=== PATIENT | male | born 1985 | race Caucasian/White ===

== ENCOUNTER 2017-05-20 21:24 | Emergency (ER) | payer SELFPAY ==
[~2017-05-20] VITALS: Ht 185.4 cm; Wt 94.5 kg
[~2017-05-20 21:24] MED LIST: DICL75 PO; DOXY100T PO; LORTA5 PO; TRAM50 PO; Z.0.NO CURRENT MEDS
[2017-05-20 21:39] VITALS: BP 149/73; PULSE 90; RESP 20; TEMP 100.8; O2SAT 97
[2017-05-20] MEDS ORDERED: AZIT250T3 PO (22:45)
[2017-05-20] MEDS ORDERED: NAPR500T2 PO (22:45)
--- NOTE | 2017-05-20 22:45 | PD ---
HPI Chief Complaint: Cold / Flu Symptoms Time Seen by Provider: 22:34 Travel History International Travel<30 days: No Contact w/Intl Traveler<30days: No Traveled to known affect area: No History of Present Illness HPI This is a 31-year-old male who presents to the emergency department with 1 week of persistent cough, fever, chills, body aches and sore throat, constant, moderate severity. He denies any vomiting or diarrhea. He's been taking everything [id number] that he can think of but is not getting better. He' s been having difficulty eating and drinking. PFSH Past Medical History Medical History: Denies Significant Hx Diminished Hearing: No Immunizations Current: No Tetanus Vaccination: < 5 Years Influenza Vaccination: No Past Surgical History Surgical History: No Previous Surgery Social History Alcohol Use: No Tobacco Use: No Substance Use: No Allergies-Medications (Allergen,Severity, Reaction): Coded Allergies: penicillin G (Unverified Allergy, Mild, 05/20/17) Reported Meds & Prescriptions Reported Meds & Active Scripts Active No Active Prescriptions or Reported Medications Review of Systems Except as stated in HPI: all other systems reviewed are Neg Physical Exam Narrative GENERAL:Well appearing, no acute distress SKIN: Focused skin assessment warm and dry. HEAD: Atraumatic. Normocephalic. EYES: Pupils equal and round. No injection or drainage. ENT: Moist mucous membranes. Posterior pharyngeal erythema. NECK: Tender left anterior cervical lymphadenopathy. CARDIOVASCULAR: Regular rate and rhythm. No murmur appreciated. RESPIRATORY: Clear to auscultation. Breath sounds equal bilaterally. GASTROINTESTINAL: Abdomen soft, non-tender, nondistended. MUSCULOSKELETAL: No obvious deformities. NEUROLOGICAL: Awake and alert. No obvious cranial nerve deficits. Moving all extremities. PSYCHIATRIC: Appropriate mood and affect; insight and judgment normal. Data Data Last Documented VS Vital Signs Date Time Temp Pulse Resp B/P (MAP) Pulse Ox O2 Delivery O2 Flow Rate FiO2 05/20/17 21:47 (98) 05/20/17 21:44 97 Room Air 05/20/17 21:39 100.8 90 20 Orders Orders Group A Rapid Strep Screen (05/20/17 22:16) Influenzae A/B Antigen (05/20/17 22:16) MDM Medical Decision Making Medical Screen Exam Complete: Yes Emergency Medical Condition: Yes Interpretation(s) Strep positive Differential Diagnosis Strep pharyngitis, viral pharyngitis, influenza Narrative Course This is a 31-year-old male who presents to the emergency department with cough and sore throat for 1 week. He has posterior pharyngeal erythema, fever and tender adenopathy. He was positive for strep. I see no signs of peritonsillar abscess. He can be discharged home on antibiotics. Diagnosis Primary Impression: Strep pharyngitis Patient Instructions: General Instructions Additional Instructions: If you develop severe chest pain, shortness of breath, sweating, lightheadedness , dizziness or difficulty breathing return to the emergency department immediately. Followup with your primary care physician in 2-3 days if your symptoms are not resolved. Med/Other Pt SpecificInfo: Prescription(s) given Scripts Naproxen (Naproxen) 500 Mg Tab 500 MG PO BID Y for PAIN SCALE 4 TO 10, #20 TAB 0 Refills Prov: Blank Gill MD 05/20/17 Azithromycin (Azithromycin) 250 Mg Tab 250 MG PO DIRECTED for Infection, #6 TAB 0 Refills Take 2 tabs (500 mg) on day 1 then 1 tab daily x 4 days. Prov: Blank Gill MD 05/20/17 Disposition: DISCHARGE HOME Condition: Stable Blank Gill MD May 20, 2017 22:45
== END 2017-05-20 22:51 | disposition home or self-care (01) ==
LOC: PHEFT 21:24
DX: J02.0 Streptococcal pharyngitis (principal); R05 Cough; Z88.0 Allergy status to penicillin
CPT/HCPCS: 87804; 87880; 99283